=== PATIENT | female | born 1955 | race Caucasian/White ===

== ENCOUNTER 2022-05-25 13:29 | Emergency (ER) | payer MEDICARE, OTHER ==
[~2022-05-25] VITALS: Ht 157.5 cm; Wt 76.2 kg
[2022-05-25 14:23] LABS: BASOPHILS ABSOLUTE AUTO 0.04 K/mm3 (0.00-0.23); BASOPHILS PERCENT AUTO 1 % (0-2); EOSINOPHILS ABSOLUTE AUTO 0.23 K/mm3 (0.00-0.68); EOSINOPHILS PERCENT AUTO 3 % (0-6); Hematocrit 44.1 % (33.0-51.0); Hemoglobin 14.8 g/dL (11.5-16.0); IMMATURE GRAN ABSOLUTE AUTO 0.01 K/mm3 (0.00-0.10); IMMATURE GRAN PERCENT AUTO 0 % (0-1); LYMPHOCYTES ABSOLUTE AUTO 2.04 K/mm3 (0.84-5.20); LYMPHOCYTES PERCENT AUTO 29 % (21-46); MONOCYTES ABSOLUTE AUTO 0.59 K/mm3 (0.16-1.47); MONOCYTES PERCENT AUTO 8 % (4-13); Mean Corpuscular HGB 29.4 pg (26.0-34.0); Mean Corpuscular HGB Conc 33.6 g/dL (31.5-36.5); Mean Corpuscular Volume 88 fL (80-100); Mean Platelet Volume 9.6 fL (9.1-12.4); NEUTROPHILS ABSOLUTE AUTO 4.18 K/mm3 (1.96-9.15); NEUTROPHILS PERCENT AUTO 59 % (41-73); Platelet Count 214 K/mm3 (150-400); RDW Standard Deviation 38.6 fL (35.1-46.3); Red Blood Cell Count 5.03 M/mm3 (3.80-5.20); White Blood Cell Count 7.09 K/mm3 (4.00-11.30)
[2022-05-25 14:45] LABS: Albumin, Blood 3.8 g/dL (3.4-5.0); Bilirubin, Total 0.4 mg/dL (0.1-1.0); Bun/Creatinine Ratio 22.9 (12.0-20.0); Calcium, Blood 8.8 mg/dL (8.5-10.1); Creatinine, Blood 0.66 mg/dL (0.40-1.00); Globulin, Blood 3.7 g/dL (2.2-4.0); Potassium, Blood 3.9 mmol/L (3.5-5.5); Total Protein, Blood 7.5 g/dL (6.4-8.2)
== END 2022-05-25 19:07 | disposition home or self-care (01) ==
LOC: ER 13:29
PROVIDERS: Physician Assistant
DX: R42 Dizziness and giddiness (principal); R07.9 Chest pain, unspecified; M54.12 Radiculopathy, cervical region
CPT/HCPCS: 70450; 71046; 80053; 84484; 85025; 93005; 93010; 99284-25

== ENCOUNTER 2023-05-31 15:16 | Emergency (ER) | payer MEDICARE, OTHER ==
[~2023-05-31] VITALS: Ht 157.5 cm; Wt 74.4 kg
[2023-05-31 15:38] VITALS: BP 185/89
[2023-05-31] MEDS ORDERED: HYCODAN 5 MG-1.55 ML PO (16:14)
[2023-06-01] MEDS ORDERED: HYCODAN 5 MG-1.55 ML PO (15:13)
== END 2023-05-31 16:16 | disposition home or self-care (01) ==
LOC: ER 15:16
DX: R05.9 Cough, unspecified (principal)
CPT/HCPCS: 71046; 99283-25

== ENCOUNTER 2023-10-11 07:55 | Day surgery (SDC) | payer OTHER ==
[2023-10-11] VITALS (11 sets, daily range): BP systolic 149–172; BP diastolic 68–86
[~2023-10-11] VITALS: Ht 154 cm; Wt 77.3 kg
[~2023-10-11 07:55] MED LIST: HYCODAN 5 MG-1.55 ML PO; Lactated Ringer's 1,000 ML IV SCH
[2023-10-11] MEDS ORDERED: FentaNYL Citrate 50 MCG/ML 2 ML Injection ONE (08:05)
[2023-10-11] MEDS ORDERED: propofoL 20 ML IV ONE (08:05)
[2023-10-11] MEDS ORDERED: ESTRADIOL42.5 GM VAG (08:38)
[2023-10-11] MEDS ORDERED: CLOBETASOL EMOL15 G1 VAG (08:38)
[2023-10-11] MEDS ORDERED: HYDROmorphone HCl/Pf 1MG SYR IV PRN (08:50)
[2023-10-11] MEDS ORDERED: Lidocaine HCl 1% 5 ML SYR INJ ONE (08:50)
[2023-10-11] MEDS ORDERED: Ondansetron HCl 2 MG / ML 2ML Vial IV PRN ×2 (08:50→11:30)
[2023-10-11] MEDS ORDERED: FentaNYL Citrate 50 MCG/ML 2 ML Injection IV PRN ×2 (08:50→08:55)
[2023-10-11] MEDS ORDERED: Midazolam HCl 1MG / ML 2ML Vial IV ONE (08:50)
--- NOTE | 2023-10-11 08:54 | NUR ---
History, Chart, Medications and Allergies reviewed before start of procedure. Patient up to Ambulate independently. Gait steady. Pre-Op teaching done. Pt verbalizes understanding. Patient confirms NPO status and agrees with scheduled surgery. Lungs clear T/O to Auscultation. Patient States Post-Procedure ride home has been arranged.
[2023-10-11] MEDS ORDERED: Bupivacaine 0.5% HCl 5 MG/ML 30MLVIAL ONE (09:39)
[2023-10-11] MEDS ORDERED: EpiNEPhrine 1 MG/1 ML 1ML Vial ONE (09:45)
[2023-10-11] MEDS ORDERED: Phenylephrine HCl 100 MCG/ML-NS 10MLSYR (1MG/10ML) ONE (10:09)
[2023-10-11] MEDS ORDERED: Dexamethasone Sod Phos 10 MG/ML 1ML VIAL ONE (10:13)
[2023-10-11] MEDS ORDERED: Ondansetron HCl 2 MG / ML 2ML Vial ONE (10:13)
--- NOTE | 2023-10-11 10:32 | NUR ---
10/11/23 1032 Lillie Franklin 30MLS OF BUPIVACAINE 0.5% MIXED WITH 0.15ML OF EPI BY DR. SIEGEL TO CREATE A SOLUTION OF BUPIVACAINE 0.5% WITH EPI 1:200,000. LOCAL POURED ONTO STERILE FIELD FOR USE DURING CASE.
[2023-10-11] MEDS ORDERED: OxyCODONE 5 mg/Acetamin 325 mg TABLET PO PRN (11:30)
--- NOTE | 2023-10-11 11:40 | NUR ---
PT TO DAY SURGERY STEP DOWN FROM PACU. BEDSIDE REPORT RECEIEVED. PT HAD EXAM UNDER GENERAL AND IS AWAKE, ALERT AND ORIENTED; ABLE TO MOVE SELF IN BED. PT HAS CLEAN ANUM PAD IN PLACE. PT DENIES PAIN; IS REQUESTING PO FLUIDS AND FOOD. PT HAS NO COMPLAINTS.
--- NOTE | 2023-10-11 11:50 | NUR ---
PT TOLERATING PO FLUIDS AND CRACKERS/PUDDING WELL. NO COMPLAINTS.
--- NOTE | 2023-10-11 12:11 | NUR ---
Patient up to Ambulate independently. Gait steady. UP TO VOID; ABLE TO VOID WITHOUT DIFFICULITY. Discharge instructions reviewed with patient. Patient verbalizes understanding. Copy given to patient to take home. Patient States Post-Procedure ride home has been arranged.
--- NOTE | 2023-10-11 12:15 | NUR ---
Discharged via wheelchair to private car for ride home.
== END 2023-10-11 12:15 | disposition home or self-care (01) ==
LOC: ORSCMMR 07:55 → ORD 09:30 → ORSCMMR 12:15
PROVIDERS: Obstetrics & Gynecology
PROC: 0JQC0ZZ Repair Pelvic Region Subcutaneous Tissue and Fascia, Open Approach (ICD-10-PCS; principal; 2023-10-11 09:30)
DX: N81.5 Vaginal enterocele (principal); Z79.899 Other long term (current) drug therapy; Z68.32 Body mass index [BMI] 32.0-32.9, adult
CPT/HCPCS: J0171; J1100; J2250; J2371; J2405; J2704; J3010; J7120

== ENCOUNTER → 2025-05-14 | Outpatient (CLI) | payer OTHER ==
[~2025-05-14] MED LIST changes: +CLOBETASOL EMOL15 G1 VAG; +ESTRADIOL42.5 GM VAG; -Lactated Ringer's 1,000 ML IV SCH; +ONDA4ODT MM
== END ==
LOC: LAB 11:07 → LAB SHORT 11:07 → LAB FUT 05-14 11:35 → EDSTATUS 05-14 11:35
DX: R30.0 Dysuria (principal)
CPT/HCPCS: 87086